=== PATIENT | male | born 1975 | race Caucasian/White ===

== ENCOUNTER 2022-06-20 08:48 | Emergency (ER) | payer OTHER ==
[~2022-06-20] VITALS: Ht 180.3 cm; Wt 73.0 kg
[2022-06-20] MEDS ORDERED: SODIUM CHLORIDE 0.9% 1,000 ML IV ONE (09:30)
[2022-06-20] MEDS ORDERED: NALOXONE HCL 1 MG/ML 2ML VIAL IV ONE (09:30)
[2022-06-20 09:54] VITALS: BP 124/75
== END 2022-06-20 09:55 | disposition left against medical advice (07) ==
LOC: ER 08:48
DX: F10.129 Alcohol abuse with intoxication, unspecified (principal); Y90.9 Presence of alcohol in blood, level not specified
CPT/HCPCS: 82962; 99283; J7030